=== PATIENT | female | born 1940 | race Caucasian/White ===

== ENCOUNTER 2018-07-23 21:33 | Emergency (ER) | payer OTHER ==
[~2018-07-23] VITALS: Ht 167.6 cm; Wt 75.3 kg
[2018-07-23] MEDS ORDERED: ZANTAC25 MG/1 ML (22:03)
== END 2018-07-23 23:42 | disposition home or self-care (01) ==
LOC: ER 21:33
DX: M94.0 Chondrocostal junction syndrome [Tietze] (principal)

== ENCOUNTER 2018-10-22 00:43 | Emergency (ER) | payer OTHER ==
[~2018-10-22] VITALS: Ht 165.1 cm; Wt 73.5 kg
[~2018-10-22 00:43] MED LIST: ZANTAC25 MG/1 ML
[2018-10-22] MEDS ORDERED: METFORMIN HCL500 MG (01:08)
== END 2018-10-22 04:47 | disposition left against medical advice (07) ==
LOC: ER 00:43
DX: K21.9 Gastro-esophageal reflux disease without esophagitis (principal); I10 Essential (primary) hypertension; G44.209 Tension-type headache, unspecified, not intractable

== ENCOUNTER 2019-01-30 22:42 | Emergency (ER) | payer OTHER ==
[~2019-01-30] VITALS: Ht 170.2 cm; Wt 72.1 kg
[~2019-01-30 22:42] MED LIST changes: +METFORMIN HCL500 MG
== END 2019-01-31 05:54 | disposition home or self-care (01) ==
LOC: ER 22:42 → CPU-OBS 23:13 → ER 23:13
DX: R07.89 Other chest pain (principal)
CPT/HCPCS: 93005; G0378; G0379